=== PATIENT | female | born 1985 | race Caucasian/White ===

== ENCOUNTER 2018-01-31 23:34 | Emergency (ER) | payer OTHER | END 2018-02-01 03:05 | disposition home or self-care (01) | LOC: FTE 23:34 | DX: J20.9 Acute bronchitis, unspecified (principal) | CPT/HCPCS: 99284; Z7502 ==

== ENCOUNTER 2018-09-07 08:40 | Emergency (ER) | payer OTHER ==
[2018-09-07 09:24] LABS: ADD MAN DIFF? NO
[2018-09-07 09:26] LABS: WHITE BLOOD COUNT 9.2 10^3/ul (4.8-10.8)
[2018-09-07 09:26] LABS: BASOPHILS % 0.4 % (0.0-2.0); EOSINOPHILS # 0.2 10^3/ul (0.0-0.5); EOSINOPHILS % 2.2 % (0.0-7.0); HEMATOCRIT 35.8 % (37.0-47.0); HEMOGLOBIN 11.3 g/dl (12.0-16.0); LYMPHOCYTES # 2.3 10^3/ul (0.8-2.9); LYMPHOCYTES % 25.4 % (15.0-51.0); MEAN CORPUSCULAR HEMOGLOBIN 26.6 pg (29.0-33.0); MEAN CORPUSCULAR HGB CONC 31.6 g/dl (32.0-37.0); MEAN CORPUSCULAR VOLUME 84.2 fl (82.0-101.0); MEAN PLATELET VOLUME 10.9 fl (7.4-10.4); MONOCYTE # 0.5 10^3/ul (0.3-0.9); MONOCYTES % 5.9 % (0.0-11.0); NEUTROPHILS % 65.6 % (39.0-77.0); PLATELET COUNT 240 10^3/UL (140-415); RED BLOOD COUNT 4.25 10^6/ul (4.20-5.40)
[2018-09-07 09:35] LABS: ADD UMIC YES; UR ASCORBIC ACID NEGATIVE (NEGATIVE); UR BACTERIA FEW /HPF (NONE SEEN); UR BILIRUBIN (Dip) NEGATIVE (NEGATIVE); UR BLOOD (Dip) 3+ mg/dL (NEGATIVE); UR CLARITY SLIGHTLY CLOUDY (CLEAR); UR COLOR YELLOW (YELLOW); UR GLUCOSE (Dip) NEGATIVE (NEGATIVE); UR KETONES (Dip) NEGATIVE (NEGATIVE); UR LEUKOCYTE ESTERASE (Dip) 1+ Leu/ul (NEGATIVE); UR MUCUS FEW /HPF (NONE SEEN); UR NITRITE (Dip) NEGATIVE (NEGATIVE); UR RBC 2 /HPF (0-5); UR SPECIFIC GRAVITY (Dip) 1.016 (1.003-1.030); UR SQUAMOUS EPITHELIAL CELL FEW /HPF (FEW); UR TOTAL PROTEIN (Dip) NEGATIVE (NEGATIVE); UR UROBILINOGEN (Dip) NEGATIVE (NEGATIVE); UR WBC 7 /HPF (0-5)
== END 2018-09-07 11:16 | disposition home or self-care (01) ==
LOC: FTE 08:40
DX: O20.9 Hemorrhage in early pregnancy, unspecified (principal); Z3A.16 16 weeks gestation of pregnancy
CPT/HCPCS: 36415; 76805; 81001; 84702; 85025; 86900; 86901; 99284-25

== ENCOUNTER 2018-12-04 21:13 | Outpatient (CLI) | payer OTHER ==
[2018-12-04 22:32] LABS: ADD UMIC YES; UR ASCORBIC ACID NEGATIVE (NEGATIVE); UR BACTERIA FEW /HPF (NONE SEEN); UR BILIRUBIN (Dip) NEGATIVE (NEGATIVE); UR BLOOD (Dip) NEGATIVE (NEGATIVE); UR CALCIUM OXALATE CRYSTAL MANY /HPF (NONE SEEN); UR CLARITY SLIGHTLY CLOUDY (CLEAR); UR COLOR YELLOW (YELLOW); UR GLUCOSE (Dip) NEGATIVE (NEGATIVE); UR KETONES (Dip) NEGATIVE (NEGATIVE); UR LEUKOCYTE ESTERASE (Dip) 1+ Leu/ul (NEGATIVE); UR MUCUS FEW /HPF (NONE SEEN); UR NITRITE (Dip) NEGATIVE (NEGATIVE); UR RBC 2 /HPF (0-5); UR SPECIFIC GRAVITY (Dip) 1.015 (1.003-1.030); UR SQUAMOUS EPITHELIAL CELL FEW /HPF (FEW); UR TOTAL PROTEIN (Dip) NEGATIVE (NEGATIVE); UR UROBILINOGEN (Dip) NEGATIVE (NEGATIVE); UR WBC 14 /HPF (0-5)
[2018-12-04 23:22] LABS: ADD MAN DIFF? NO
[2018-12-04 23:26] LABS: BASOPHILS % 0.4 % (0.0-2.0); EOSINOPHILS # 0.2 10^3/ul (0.0-0.5); EOSINOPHILS % 2.1 % (0.0-7.0); HEMATOCRIT 30.8 % (37.0-47.0); HEMOGLOBIN 9.7 g/dl (12.0-16.0); LYMPHOCYTES # 2.5 10^3/ul (0.8-2.9); LYMPHOCYTES % 25.9 % (15.0-51.0); MEAN CORPUSCULAR HEMOGLOBIN 26.9 pg (29.0-33.0); MEAN CORPUSCULAR HGB CONC 31.5 g/dl (32.0-37.0); MEAN CORPUSCULAR VOLUME 85.3 fl (82.0-101.0); MEAN PLATELET VOLUME 10.2 fl (7.4-10.4); MONOCYTE # 0.7 10^3/ul (0.3-0.9); MONOCYTES % 7.3 % (0.0-11.0); NEUTROPHILS % 61.5 % (39.0-77.0); PLATELET COUNT 215 10^3/UL (140-415); RED BLOOD COUNT 3.61 10^6/ul (4.20-5.40); RED CELL DISTRIBUTION WIDTH 13.3 % (11.5-14.5)
[2018-12-04 23:26] LABS: WHITE BLOOD COUNT 9.7 10^3/ul (4.8-10.8)
[2018-12-04 23:44] LABS: ALANINE AMINOTRANSFERASE 18 IU/L (13-69); ALBUMIN 3.4 g/dl (3.3-4.9); ALBUMIN/GLOBULIN RATIO 1.17; ALKALINE PHOSPHATASE 92 IU/L (42-121); AMYLASE 43 U/L (11-123); ANION GAP 10 (5-13); ASPARTATE AMINO TRANSFERASE 16 IU/L (15-46); BLOOD UREA NITROGEN 8 mg/dl (7-20); CALCIUM 9.2 mg/dl (8.4-10.2); CARBON DIOXIDE 23 mmol/L (21-31); CHLORIDE 102 mmol/L (97-110); CREATININE 0.63 mg/dl (0.44-1.00); Estimated GFR > 60 mL/min (>60); GLUCOSE 116 mg/dl (70-220); LIPASE 71 U/L (23-300); SODIUM 135 mmol/L (135-144); TOTAL PROTEIN 6.3 g/dl (6.1-8.1)
== END 2018-12-05 01:02 | disposition home or self-care (01) ==
LOC: OBT 12-05 01:02 → L-D 21:14
DX: O26.893 Other specified pregnancy related conditions, third trimester (principal); Z3A.29 29 weeks gestation of pregnancy; R10.2 Pelvic and perineal pain
CPT/HCPCS: 76815; 76817; 80053; 81001; 82150; 83690; 85025; 87086

== ENCOUNTER 2019-01-15 20:58 | Inpatient (IN) | payer OTHER ==
[2019-01-15] MEDS ORDERED: ONDANSETRON 4 MG INJ IV (22:00)
[2019-01-15] MEDS ORDERED: AL HYDROX/MG HYDROX/SIMETH 30 ML CUP PO (22:00)
[2019-01-15] MEDS ORDERED: METOCLOPRAMIDE 10 MG INJ IV (22:00)
[2019-01-15] MEDS: LACTATED RINGER'S 1,000 ML IV (22:28)
[2019-01-15 22:35] LABS: ADD MAN DIFF? NO
[2019-01-15 22:38] LABS: WHITE BLOOD COUNT 8.3 10^3/ul (4.8-10.8)
[2019-01-15 22:38] LABS: BASOPHILS % 0.4 % (0.0-2.0); EOSINOPHILS # 0.1 10^3/ul (0.0-0.5); EOSINOPHILS % 1.7 % (0.0-7.0); HEMATOCRIT 32.8 % (37.0-47.0); HEMOGLOBIN 10.3 g/dl (12.0-16.0); LYMPHOCYTES # 2.3 10^3/ul (0.8-2.9); LYMPHOCYTES % 27.6 % (15.0-51.0); MEAN CORPUSCULAR HEMOGLOBIN 26.1 pg (29.0-33.0); MEAN CORPUSCULAR HGB CONC 31.4 g/dl (32.0-37.0); MEAN PLATELET VOLUME 10.6 fl (7.4-10.4); MONOCYTE # 0.9 10^3/ul (0.3-0.9); MONOCYTES % 10.3 % (0.0-11.0); NEUTROPHIL # 4.7 10^3/ul (1.6-7.5); NEUTROPHILS % 57.2 % (39.0-77.0); PLATELET COUNT 236 10^3/UL (140-415); RED BLOOD COUNT 3.95 10^6/ul (4.20-5.40); RED CELL DISTRIBUTION WIDTH 13.7 % (11.5-14.5)
[2019-01-15 23:00] LABS: ADD UMIC YES; UR ASCORBIC ACID NEGATIVE (NEGATIVE); UR BACTERIA FEW /HPF (NONE SEEN); UR BILIRUBIN (Dip) NEGATIVE (NEGATIVE); UR BLOOD (Dip) NEGATIVE (NEGATIVE); UR CLARITY SLIGHTLY CLOUDY (CLEAR); UR COLOR YELLOW (YELLOW); UR GLUCOSE (Dip) 2+ mg/dL (NEGATIVE); UR KETONES (Dip) NEGATIVE (NEGATIVE); UR LEUKOCYTE ESTERASE (Dip) 3+ Leu/ul (NEGATIVE); UR NITRITE (Dip) NEGATIVE (NEGATIVE); UR RBC 4 /HPF (0-5); UR SPECIFIC GRAVITY (Dip) 1.009 (1.003-1.030); UR SQUAMOUS EPITHELIAL CELL MANY /HPF (FEW); UR TOTAL PROTEIN (Dip) NEGATIVE (NEGATIVE); UR UROBILINOGEN (Dip) NEGATIVE (NEGATIVE); UR WBC 65 /HPF (0-5)
[2019-01-15 23:08] LABS: ALANINE AMINOTRANSFERASE 15 IU/L (13-69); ALBUMIN 3.4 g/dl (3.3-4.9); ALBUMIN/GLOBULIN RATIO 1.21; ALKALINE PHOSPHATASE 149 IU/L (42-121); ANION GAP 13 (5-13); ASPARTATE AMINO TRANSFERASE 17 IU/L (15-46); BILIRUBIN,INDIRECT 0.2 mg/dl (0-1.1); BILIRUBIN,TOTAL 0.2 mg/dl (0.2-1.3); BLOOD UREA NITROGEN 7 mg/dl (7-20); CALCIUM 8.7 mg/dl (8.4-10.2); CARBON DIOXIDE 21 mmol/L (21-31); CHLORIDE 104 mmol/L (97-110); CREATININE 0.43 mg/dl (0.44-1.00); Estimated GFR > 60 mL/min (>60); GLUCOSE 129 mg/dl (70-220); POTASSIUM 3.7 mmol/L (3.5-5.1); SODIUM 138 mmol/L (135-144); TOTAL PROTEIN 6.2 g/dl (6.1-8.1)
[2019-01-15] MEDS: MAGNESIUM SULFATE 4 GM/100 ML 100 ML IV (23:10)
[2019-01-15] MEDS: BETAMET NA PHOS/AC(6 MG/ML) 2 ML INJ SYG IM (23:24)
[2019-01-15] MEDS: MAGNESIUM SULFATE 20 GM/500 ML 500 ML IV (23:33)
[2019-01-16 06:47] LABS: MAGNESIUM 4.6 mg/dl (1.7-2.5)
[2019-01-16] MEDS: MAGNESIUM SULFATE 20 GM/500 ML 500 ML IV ×2 (08:34→18:30)
[2019-01-16] MEDS: PRENATAL VITAMIN PO (08:34)
[2019-01-16] MEDS: FERROUS SULFATE (EC) 325 MG TAB PO (08:34)
[2019-01-16] MEDS ORDERED: PANTOPRAZOLE (EC) 40 MG TAB PO ×2 (09:00)
[2019-01-16] MEDS: ACETAMINOPHEN 325 MG TAB PO (12:53)
[2019-01-16] MEDS: LACTATED RINGER'S 1,000 ML IV ×2 (12:54→20:22)
[2019-01-16 15:45] LABS: RAPID PLASMA REAGIN NONREACTIVE (NR)
[2019-01-16 19:07] LABS: MAGNESIUM 4.6 mg/dl (1.7-2.5)
[2019-01-16] MEDS: BETAMET NA PHOS/AC(6 MG/ML) 2 ML INJ SYG IM (22:57)
[2019-01-17 01:04] LABS: MAGNESIUM 4.6 mg/dl (1.7-2.5)
[2019-01-17] MEDS: MAGNESIUM SULFATE 20 GM/500 ML 500 ML IV ×2 (04:38→14:41)
[2019-01-17 07:10] LABS: MAGNESIUM 4.6 mg/dl (1.7-2.5)
[2019-01-17] MEDS: LACTATED RINGER'S 1,000 ML IV ×2 (08:42→23:03)
[2019-01-17] MEDS: PRENATAL VITAMIN PO (09:30)
[2019-01-17] MEDS: FERROUS SULFATE (EC) 325 MG TAB PO (09:30)
[2019-01-17 12:44] LABS: MAGNESIUM 4.7 mg/dl (1.7-2.5)
[2019-01-17] MEDS ORDERED: DOCUSATE SODIUM 100 MG CAP PO (14:30)
[2019-01-17] MEDS: SENNA TAB PO (14:33)
[2019-01-18 00:55] LABS: MAGNESIUM 4.6 mg/dl (1.7-2.5)
[2019-01-18] MEDS: MAGNESIUM SULFATE 20 GM/500 ML 500 ML IV (02:13)
== END 2019-01-18 09:35 | disposition home or self-care (01) | DRG 833 ==
LOC: OBT 20:58 → L-D 21:00 → OBT 21:48 → L-D 21:48
DX: O47.03 False labor before 37 completed weeks of gestation, third trimester (principal); Z3A.35 35 weeks gestation of pregnancy
CPT/HCPCS: 36415; 76815; 76818; 80053; 81001; 83735; 85025; 86592; 86850; 86900; 86901; 87086

== ENCOUNTER 2019-01-24 03:57 | Inpatient (IN) | payer OTHER ==
[2019-01-24] MEDS ORDERED: LIDOCAINE 1% (MPF) 30 ML INJ (04:12)
[2019-01-24] MEDS: OXYTOCIN 30 UNITS/LR 500 ML IV ×3 (04:15→08:23)
[2019-01-24] MEDS: METHYLERGONOVINE 0.2 MG INJ IM ×2 (04:20→04:50)
[2019-01-24] MEDS ORDERED: LIDOCAINE 1% (MPF) 30 ML INJ INJ (04:30)
[2019-01-24] MEDS ORDERED: MISOPROSTOL 200 MCG TAB PR ×2 (04:30→07:00)
[2019-01-24] MEDS ORDERED: CARBOPROST 250 MCG INJ IM ×2 (04:30→07:00)
[2019-01-24] MEDS ORDERED: OXYTOCIN 30 UNITS/LR 500 ML IV ×2 (04:30→07:00)
[2019-01-24] MEDS ORDERED: OXYCODONE/ASPIRIN (4.88/325) TAB PO (04:30)
[2019-01-24] MEDS ORDERED: METHYLERGONOVINE 0.2 MG INJ (04:32)
[2019-01-24] MEDS: KETOROLAC 30 MG INJ IV (04:51)
[2019-01-24] MEDS: KETOROLAC 30 MG INJ IM (05:02)
[2019-01-24 05:07] LABS: ADD MAN DIFF? NO
[2019-01-24 05:23] LABS: BASOPHILS % 0.3 % (0.0-2.0); EOSINOPHILS # 0.1 10^3/ul (0.0-0.5); EOSINOPHILS % 1.5 % (0.0-7.0); HEMATOCRIT 36.9 % (37.0-47.0); HEMOGLOBIN 11.7 g/dl (12.0-16.0); LYMPHOCYTES # 2.9 10^3/ul (0.8-2.9); LYMPHOCYTES % 29.7 % (15.0-51.0); MEAN CORPUSCULAR HEMOGLOBIN 26.4 pg (29.0-33.0); MEAN CORPUSCULAR HGB CONC 31.7 g/dl (32.0-37.0); MEAN CORPUSCULAR VOLUME 83.1 fl (82.0-101.0); MEAN PLATELET VOLUME 10.5 fl (7.4-10.4); MONOCYTE # 0.8 10^3/ul (0.3-0.9); MONOCYTES % 8.7 % (0.0-11.0); NEUTROPHIL # 5.5 10^3/ul (1.6-7.5); NEUTROPHILS % 57.3 % (39.0-77.0); PLATELET COUNT 267 10^3/UL (140-415); RED BLOOD COUNT 4.44 10^6/ul (4.20-5.40); RED CELL DISTRIBUTION WIDTH 14.6 % (11.5-14.5)
[2019-01-24 05:23] LABS: WHITE BLOOD COUNT 9.6 10^3/ul (4.8-10.8)
[2019-01-24 05:32] LABS: INR 0.93; PROTIME 12.6 Sec (11.9-14.9)
[2019-01-24 05:33] LABS: PARTIAL THROMBOPLASTIN TIME 27.3 Sec (23.0-35.0)
[2019-01-24] MEDS: morphine 2 MG INJ IV (05:38)
[2019-01-24] MEDS ORDERED: BUTORPHANOL 2 MG INJ (05:51)
[2019-01-24] MEDS: BUTORPHANOL 2 MG INJ IV (05:56)
[2019-01-24 06:24] LABS: HEPATITIS B SURFACE ANTIGEN NEGATIVE (NEGATIVE)
[2019-01-24 06:33] LABS: HIV 1&2 ANTIBODY NEGATIVE (NEGATIVE)
[2019-01-24] MEDS ORDERED: ALBUTEROL HFA 8 GM INHALER INH (07:00)
[2019-01-24] MEDS ORDERED: ONDANSETRON 4 MG INJ IV (07:00)
[2019-01-24] MEDS ORDERED: LANOLIN HPA 1 PKT TOP (07:00)
[2019-01-24] MEDS ORDERED: DIPHENHYDRAMINE 25 MG CAP PO (07:00)
[2019-01-24] MEDS ORDERED: ZOLPIDEM 5 MG TAB PO (07:00)
[2019-01-24] MEDS ORDERED: ACETAMINOPHEN 325 MG TAB PO (07:00)
[2019-01-24] MEDS ORDERED: NACL 0.9% 3 ML SYG IV (07:00)
[2019-01-24] MEDS ORDERED: morphine 2 MG INJ IV (07:00)
[2019-01-24 07:34] LABS: HEMATOCRIT 35.2 % (37.0-47.0)
[2019-01-24] MEDS: IBUPROFEN 600 MG TAB PO ×3 (09:14→17:49)
[2019-01-24] MEDS: WITCH HAZEL/GLYCERIN PAD PR (12:17)
[2019-01-24] MEDS: SENNA/DOCUSATE NA (8.6MG/50MG) TAB PO ×2 (12:18→21:16)
[2019-01-24] MEDS: HYDROCODONE/APAP (5/325) TAB PO (21:16)
[2019-01-24 22:21] LABS: RAPID PLASMA REAGIN NONREACTIVE (NR)
[2019-01-25] MEDS: WITCH HAZEL/GLYCERIN PAD PR ×2 (00:13→20:57)
[2019-01-25] MEDS: IBUPROFEN 600 MG TAB PO ×4 (00:13→17:44)
[2019-01-25 07:00] LABS: ADD MAN DIFF? NO
[2019-01-25 07:01] LABS: WHITE BLOOD COUNT 8.9 10^3/ul (4.8-10.8)
[2019-01-25 07:01] LABS: BASOPHIL # 0.1 10^3/ul (0.0-0.1); BASOPHILS % 0.6 % (0.0-2.0); EOSINOPHILS # 0.2 10^3/ul (0.0-0.5); HEMATOCRIT 29.2 % (37.0-47.0); LYMPHOCYTES # 2.4 10^3/ul (0.8-2.9); MEAN CORPUSCULAR HEMOGLOBIN 26.2 pg (29.0-33.0); MEAN CORPUSCULAR HGB CONC 30.8 g/dl (32.0-37.0); MEAN CORPUSCULAR VOLUME 84.9 fl (82.0-101.0); MEAN PLATELET VOLUME 10.4 fl (7.4-10.4); MONOCYTE # 0.7 10^3/ul (0.3-0.9); MONOCYTES % 8.4 % (0.0-11.0); NEUTROPHIL # 5.3 10^3/ul (1.6-7.5); NEUTROPHILS % 59.9 % (39.0-77.0); PLATELET COUNT 201 10^3/UL (140-415); RED BLOOD COUNT 3.44 10^6/ul (4.20-5.40); RED CELL DISTRIBUTION WIDTH 14.6 % (11.5-14.5)
[2019-01-25] MEDS: HYDROCODONE/APAP (5/325) TAB PO (09:21)
[2019-01-25] MEDS: SENNA/DOCUSATE NA (8.6MG/50MG) TAB PO ×2 (09:21→20:57)
[2019-01-25 09:26] LABS: RUBELLA ANTIBODY - IGG 1.84 index
[2019-01-25 10:18] LABS: RUBELLA ANTIBODY - IGM <20.00 AU/mL
[2019-01-26] MEDS: IBUPROFEN 600 MG TAB PO ×2 (00:12→05:40)
[2019-01-26] MEDS: SENNA/DOCUSATE NA (8.6MG/50MG) TAB PO (08:37)
[2019-01-26] MEDS: FERROUS GLUCONATE (EC) 325 MG TAB PO (09:56)
== END 2019-01-26 11:20 | disposition home or self-care (01) | DRG 807 ==
LOC: OBT 03:57 → L-D 03:57 → OBT 04:00 → L-D 04:00 → PP1 10:02
PROVIDERS: Obstetrics & Gynecology
PROC: 10E0XZZ Delivery of Products of Conception, External Approach (ICD-10-PCS; principal; 2019-01-24)
PROC: 0KQM0ZZ Repair Perineum Muscle, Open Approach (ICD-10-PCS; 2019-01-24)
PROC: 3E033VJ Introduction of Other Hormone into Peripheral Vein, Percutaneous Approach (ICD-10-PCS; 2019-01-24)
DX: O60.13X0 Preterm labor second trimester with preterm delivery third trimester, not applicable or unspecified (principal); Z37.0 Single live birth; O70.0 First degree perineal laceration during delivery; O69.81X0 Labor and delivery complicated by cord around neck, without compression, not applicable or unspecified; Z3A.36 36 weeks gestation of pregnancy
CPT/HCPCS: 85014; 85018; 85025; 85610; 85730; 86592; 86703; 86762; 86850; 86900; 86901; 87340